=== PATIENT | female | born 1970 | race Caucasian/White ===

== ENCOUNTER 2024-07-30 17:18 | Emergency (ER) | payer SELFPAY ==
[~2024-07-30] VITALS: Ht 154.9 cm; Wt 70.0 kg
[2024-07-30 17:24] VITALS: O2SAT 96
[2024-07-30] MEDS: ACETAMINOPHEN 325MG TABLET PO STA (17:24)
[2024-07-30] MEDS: METOCLOPRAMIDE HCL 10MG/2ML VIAL IV STA (17:24)
[2024-07-30] MEDS: KETOROLAC 30MG/ML VIAL IV STA (17:24)
[2024-07-30] MEDS: DIPHENHYDRAMINE 50MG/ML VIAL IV ONE (17:30)
[2024-07-30] MEDS: SODIUM CHLORIDE 0.9% 1,000 ML IV ONE (17:30)
[2024-07-30 19:43] LABS: BASOPHILS % 0.4 % (0.0-2.0); EOSINOPHILS % 0.7 % (0.0-5.0); HEMATOCRIT. 39.8 % (36.0-48.0); HEMOGLOBIN. 13.3 g/dL (12.0-16.0); LYMPHOCYTES % 14.1 % (20.0-50.0); MEAN CORPUSCULAR HEMOGLOBIN 29.7 pg (28.0-32.0); MEAN CORPUSCULAR HGB CONC 33.4 g/dL (31.0-37.0); MEAN CORPUSCULAR VOLUME 88.7 fL (81.0-99.0); MEAN PLATELET VOLUME 10.1 fl (7.4-10.4); MONOCYTES % 4.2 % (2.0-8.0); NEUTROPHILS % 80.6 % (40.0-76.0); PLATELET 213 x1000/uL (130-400); RED BLOOD CELL COUNT 4.49 mill/uL (4.2-5.4); RED CELL DISTRIBUTION WIDTH 13.6 % (11.6-14.6); WHITE BLOOD COUNT 7.2 x1000/uL (4.5-11.0)
[2024-07-30 19:44] LABS: CHLORIDE 105 mEq/L (98-107); POTASSIUM 3.9 mEq/L (3.5-5.1); SODIUM 137 mEq/L (136-145)
[2024-07-30 19:45] LABS: CARBON DIOXIDE 25 mEq/L (21-32)
[2024-07-30 19:46] LABS: CALCIUM 9.7 mg/dL (8.7-10.4)
[2024-07-30 19:50] LABS: CREATININE 0.9 mg/dL (0.6-1.0); GLUCOSE 179 mg/dL (70-105)
[2024-07-30 19:51] LABS: UREA NITROGEN BLOOD 15 mg/dL (9-23)
[2024-07-30 19:52] LABS: ALANINE AMINOTRANSFERASE 22 IU/L (10-49); ALBUMIN 4.7 g/dL (3.2-4.8); ASPARTATE AMINOTRANSFERASE 25 IU/L (<34)
[2024-07-30 19:53] LABS: BILIRUBIN TOTAL 0.4 mg/dL (0.1-1.0); PROTEIN TOTAL 7.6 g/dL (6.0-8.3)
[2024-07-30 19:55] LABS: CLARITY URINE CLOUDY (CLEAR); COLOR URINE YELLOW (YELLOW); GLUCOSE URINE NEGATIVE (NEGATIVE); KETONES URINE NEGATIVE (NEGATIVE); LEUKOCYTE ESTERASE URINE NEGATIVE (NEGATIVE); NITRITE URINE NEGATIVE (NEGATIVE); OCCULT BLOOD URINE 2+ (NEGATIVE); PROTEIN URINE NEGATIVE (NEGATIVE); SPECIFIC GRAVITY URINE 1.012 (1.005-1.030); UROBILINOGEN URINE 0.2 E.U./dL (0.2-1.0)
[2024-07-30 19:56] LABS: INR 0.9; PROTHROMBIN TIME 10.3 sec (9.6-11.0)
[2024-07-30 20:05] LABS: BILIRUBIN DIRECT < 0.1 mg/dL (<=3.0); TROPONIN I HIGH SENSITIVITY < 4 ng/L (3.0-34)
[2024-07-30 20:08] LABS: BACTERIA URINE 1+; SQUAMOUS EPITHELIAL CELL URINE 2+ /lpf (RARE/1+)
[2024-07-30 21:41] LABS: TROPONIN I HIGH SENSITIVITY < 4 ng/L (3.0-34)
[2024-07-30 23:00] VITALS: BP 161/75; PULSE 76; RESP 18; TEMP 36.89184; O2SAT 100
== END 2024-07-30 23:05 | disposition home or self-care (01) ==
LOC: ER 17:18
DX: R42 Dizziness and giddiness (principal); R51.9 Headache, unspecified
CPT/HCPCS: 99285; 70450; 71045; 80076; 80048; 81003; 83880; 83690; 85025; 85610; 84484; 36415; 93005; J1200; J1885; J2765; J7030